=== PATIENT | female | born 1975 | race Two or more races ===

== ENCOUNTER 2019-02-05 10:45 | Emergency (ER) | payer OTHER ==
[~2019-02-05] VITALS: Ht 167.6 cm; Wt 88.5 kg
--- NOTE | 2019-02-05 11:07 | NUR ---
ED Nurse Note:urine sent to labs
--- NOTE | 2019-02-05 11:25 | NUR ---
ER DISCHARGE NOTE: Patient is cleared to be discharged per ERMD, pt is aox4, on room air, with stable vital signs. pt was given dc instructions, pt was able to verbalize understanding, pt is able to ambulate with steady gait. pt took all belongings.
--- NOTE | 2019-02-05 12:51 | Emergency Room Report ---
History of Present Illness General Chief Complaint: General Complaint Source: Patient Present Illness HPI Patient presents emergency department today complaining of breast lump on the right breast. Patient is noted the breast lump on her prior exam herself. She noted about a day ago. She has an appointment to see her primary care physician on Tuesday. She had a recent mammogram 2 years ago. She denies any discharge or injury. Denies any fever nausea vomiting diarrhea chills. No other complaints were noted. Denies lumps anywhere else. No other modifying factors. No other associated signs and symptoms. No other complaints were noted. Allergies: Coded Allergies: No Known Allergies (Unverified , 02/05/19) Patient History Past Medical History: none Past Surgical History: none Pertinent Family History: none Social History: Denies: smoking, alcohol use, drug use Now: No Reviewed Nursing Documentation: PMH: Agreed; PSxH: Agreed Nursing Documentation-PMH Past Medical History: No Stated History Review of Systems All Other Systems: negative except mentioned in HPI Physical Exam Vital Signs Date Time Temp Pulse Resp B/P (MAP) Pulse Ox O2 Delivery O2 Flow Rate FiO2 02/05/19 10:50 97.7 61 17 114/74 (87) 99 Room Air Sp02 EP Interpretation: reviewed, normal General Appearance: normal inspection, well appearing, no apparent distress, alert Head: atraumatic Eyes: bilateral eye normal inspection ENT: normal ENT inspection, hearing grossly normal, normal voice Neck: normal inspection, full range of motion, supple, no bony tend Respiratory: normal inspection, lungs clear, normal breath sounds, no respiratory distress, no retraction, no wheezing Cardiovascular #1: regular rate, rhythm, no edema Gastrointestinal: normal inspection, normal bowel sounds, non tender, soft, no guarding, no hernia Genitourinary: no CVA tenderness Musculoskeletal: normal inspection, back normal, normal range of motion Neurologic: normal inspection, alert, responsive, speech normal Psychiatric: normal inspection, judgement/insight normal, mood/affect normal Skin: no rash Lymphatic: other - Lymph node noted on patient's right breast. But no evidence of any abscess or skin changes. Medical Decision Making Diagnostic Impression: Primary Impression: Breast lump ER Course Patient presents emergency department today complaining of right breast pain. Differential considerations include abscess cellulitis just name a few. Patient 's exam is fairly benign. Patient's exam is consistent with a Breslow. I feel that this can be worked up as an outpatient. Recommend outpatient follow-up. Patient voiced understanding understands importance of follow-up including risk of cancer. Patient is advised to follow up with primary doctor in 2-3 days and return the emergency room for any worsening symptoms and as needed. Last Vital Signs Date Time Temp Pulse Resp B/P (MAP) Pulse Ox O2 Delivery O2 Flow Rate FiO2 02/05/19 10:50 97.7 61 17 114/74 (87) 99 Room Air Status: improved Disposition: HOME, SELF-CARE Condition: Stable Referrals: [facility],REFERRING (PCP) Patient Instructions: Breast Tenderness Additional Instructions: please follow up with your doctor for an exam. You might need a mammogram or need to see a breast specialist. Brandyn Kunz MD Feb 05, 2019 12:51
[2019-02-05 13:12] VITALS: BP 114/74
[2019-02-05 13:14] VITALS: BP 114/74
== END 2019-02-05 11:30 | disposition home or self-care (01) ==
LOC: EMR 11:05
DX: N63.10 Unspecified lump in the right breast, unspecified quadrant (principal)
CPT/HCPCS: 99282

== ENCOUNTER 2019-06-04 09:07 | Emergency (ER) | payer OTHER ==
[~2019-06-04] VITALS: Ht 167.6 cm; Wt 81.6 kg
[2019-06-04 09:26] VITALS: BP 103/66
--- NOTE | 2019-06-04 09:26 | NUR ---
ED Nurse Note:pt. came from home with c/o dizziness, a/ox4 ambulatory with steady gait, seen by FAUSTO BOWEN
[2019-06-04] MEDS ORDERED: Meclizine 25mg tab ORAL STA (09:28)
--- NOTE | 2019-06-04 09:47 | NUR ---
ED Nurse Note:blood and urine sent to labs
[2019-06-04 10:01] LABS: APPEARANCE,URINE CLEAR; BASOPHILS % (AUTO) 1.8 % (0.0-2.0); BILIRUBIN, URINE NEGATIVE (NEGATIVE); COLOR,URINE PALE YELLOW; EOSINOPHILS % (AUTO) 2.3 % (0.0-3.0); GLUCOSE, URINE (UA) NEGATIVE (NEGATIVE); HEMOGLOBIN 9.6 G/DL (12.0-16.0); KETONES,URINE NEGATIVE (NEGATIVE); LEUKOCYTE ESTERASE ,URINE NEGATIVE (NEGATIVE); MEAN CORPUSCULAR VOLUME 71 FL (80-99); MONOCYTES % (AUTO) 6.9 % (1.0-10.0); NITRITE,URINE NEGATIVE (NEGATIVE); PH,URINE 5 (4.5-8.0); PLATELET COUNT 362 K/UL (150-450); PROTEIN,URINE NEGATIVE (NEGATIVE); RED BLOOD COUNT 4.38 M/UL (4.20-5.40); RED CELL DISTRIBUTION WIDTH 13.9 % (11.6-14.8); UROBILINOGEN,URINE NORMAL MG/DL (0.0-1.0); WHITE BLOOD COUNT 6.6 K/UL (4.8-10.8)
[2019-06-04 10:10] LABS: INR 0.9 (0.9-1.1)
[2019-06-04 10:11] LABS: ANION GAP 11 mmol/L (5-15); BLOOD UREA NITROGEN 12 mg/dL (7-18); CALCIUM 8.7 MG/DL (8.5-10.1); CARBON DIOXIDE 24 MMOL/L (21-32); CHLORIDE 106 MMOL/L (98-107); CREATININE 0.6 MG/DL (0.55-1.30); POTASSIUM 3.9 MMOL/L (3.5-5.1); SODIUM 140 MMOL/L (136-145)
[2019-06-04 10:24] LABS: ALANINE AMINOTRANSFERASE 21 U/L (12-78); ALBUMIN 3.7 G/DL (3.4-5.0); ALBUMIN/GLOBULIN RATIO 0.9 (1.0-2.7); ALKALINE PHOSPHATASE 84 U/L (46-116); ASPARTATE AMINO TRANSFERASE 11 U/L (15-37); BILIRUBIN,TOTAL 0.8 MG/DL (0.2-1.0)
--- NOTE | 2019-06-04 11:33 | Emergency Room Report ---
History of Present Illness General Chief Complaint: Dizziness Source: Patient Present Illness HPI Patient presents with 2 weeks of the world spinning when she lays down and moves her head to one side. She denies head trauma. She denies fevers or chills. There is no family history of strokes. No family history of aneurysms. Denies nausea or vomiting. The symptoms improve when she straightens her head or sits up. She is taking no medication. She does not believe she is and her last menstruation was normal. No change in bowels. No rashes about the head. No change in her hearing. No neck pain. No blood thinners, oncologic problems, unilateral weakness or numbness. Allergies: Coded Allergies: No Known Allergies (Unverified , 02/05/19) Patient History Past Medical History: see triage record Social History: Denies: smoking, alcohol use, drug use Social History Narrative With daughter Last Menstrual Period: 05/19/2019 Reviewed Nursing Documentation: PMH: Agreed; PSxH: Agreed Nursing Documentation-PMH Past Medical History: No Stated History Review of Systems Constitutional: Reports: see HPI Eye: Reports: see HPI ENT: Reports: see HPI Respiratory: Denies: shortness of breath Cardiovascular: Reports: see HPI Gastrointestinal: Reports: see HPI Genitourinary: Reports: see HPI Musculoskeletal: Reports: see HPI Skin: Reports: see HPI Neurological: Reports: see HPI Endocrine: Denies: increased thirst, increased urine Physical Exam Vital Signs Date Time Temp Pulse Resp B/P (MAP) Pulse Ox O2 Delivery O2 Flow Rate FiO2 06/04/19 09:10 98.2 79 16 103/66 (78) 96 Room Air Sp02 EP Interpretation: reviewed, normal General Appearance: well appearing, no apparent distress, GCS 15 Head: normocephalic Eyes: bilateral eye normal inspection, bilateral eye PERRL, bilateral eye EOMI - Except when laid flat and head is turned to the right side ENT: moist mucus membranes Neck: full range of motion, supple Respiratory: lungs clear, normal breath sounds Cardiovascular #1: regular rate, rhythm Cardiovascular #2: 2+ radial (R) Gastrointestinal: normal inspection, normal bowel sounds, non tender, no mass, non-distended Musculoskeletal: back normal, normal range of motion, gait/station normal Neurologic: alert, motor strength/tone normal, DTRs symmetric, oriented x3, sensory intact, cerebellar normal, speech normal Psychiatric: mood/affect normal Skin: no rash, warm/dry Medical Decision Making Diagnostic Impression: Primary Impression: Benign positional vertigo Qualified Codes: H81.11 - Benign paroxysmal vertigo, right ear ER Course Patient presents with vertigo when she lays down and turns her head. Insult includes benign positional vertigo, labyrinthitis, Mnire's disease, vestibular neuritis amongst others. Lack of nausea concern for possible central etiology however the patient has no risk factors. There are no red flags in history or physical exam. Laboratory evaluation indicated. Treatment with meclizine. Labs with normal CBC, CMP and urinalysis. Sed rate minimally elevated. Dylan maneuver performed Patient improved with treatment. Discussed the need for follow-up and findings. Patient advised to return if symptoms worsen. Patient stable for outpatient observation and treatment. Laboratory Tests Test 06/04/19 09:40 White Blood Count 6.6 K/UL (4.8-10.8) Red Blood Count 4.38 M/UL (4.20-5.40) Hemoglobin 9.6 G/DL (12.0-16.0) L Hematocrit 31.0 % (37.0-47.0) L Mean Corpuscular Volume 71 FL (80-99) L Mean Corpuscular Hemoglobin 22.0 PG (27.0-31.0) L Mean Corpuscular Hemoglobin Concent 31.0 G/DL (32.0-36.0) L Red Cell Distribution Width 13.9 % (11.6-14.8) Platelet Count 362 K/UL (150-450) Mean Platelet Volume 6.4 FL (6.5-10.1) L Neutrophils (%) (Auto) 55.0 % (45.0-75.0) Lymphocytes (%) (Auto) 34.0 % (20.0-45.0) Monocytes (%) (Auto) 6.9 % (1.0-10.0) Eosinophils (%) (Auto) 2.3 % (0.0-3.0) Basophils (%) (Auto) 1.8 % (0.0-2.0) Erythrocyte Sedimentation Rate 28 MM/HR (0-20) H Prothrombin Time 10.0 SEC (9.30-11.50) Prothrombin Time INR 0.9 (0.9-1.1) Activated Partial Thromboplast Time 25 SEC (23-33) Urine Color Pale yellow Urine Appearance Clear Urine pH 5 (4.5-8.0) Urine Specific [employer] 1.020 (1.005-1.035) Urine Protein Negative (NEGATIVE) Urine Glucose (UA) Negative (NEGATIVE) Urine Ketones Negative (NEGATIVE) Urine Blood Negative (NEGATIVE) Urine Nitrite Negative (NEGATIVE) Urine Bilirubin Negative (NEGATIVE) Urine Urobilinogen Normal MG/DL (0.0-1.0) Urine Leukocyte Esterase Negative (NEGATIVE) Urine HCG, Qualitative Negative (NEGATIVE) Sodium Level 140 MMOL/L (136-145) Potassium Level 3.9 MMOL/L (3.5-5.1) Chloride Level 106 MMOL/L (98-107) Carbon Dioxide Level 24 MMOL/L (21-32) Anion Gap 11 mmol/L (5-15) Blood Urea Nitrogen 12 mg/dL (7-18) Creatinine 0.6 MG/DL (0.55-1.30) Estimate Glomerular Filtration Rate > 60 mL/min (>60) Glucose Level 100 MG/DL (74-106) Calcium Level 8.7 MG/DL (8.5-10.1) Total Bilirubin 0.8 MG/DL (0.2-1.0) Aspartate Amino Transferase (AST) 11 U/L (15-37) L Alanine Aminotransferase (ALT) 21 U/L (12-78) Alkaline Phosphatase 84 U/L (46-116) Troponin I 0.000 ng/mL (0.000-0.056) Total Protein 7.6 G/DL (6.4-8.2) Albumin 3.7 G/DL (3.4-5.0) Globulin 3.9 g/dL Albumin/Globulin Ratio 0.9 (1.0-2.7) L Thyroid Stimulating Hormone (TSH) 2.062 uiU/mL (0.358-3.740) Last Vital Signs Date Time Temp Pulse Resp B/P (MAP) Pulse Ox O2 Delivery O2 Flow Rate FiO2 06/04/19 11:41 98.2 75 16 108/68 98 Room Air Status: improved Disposition: HOME, SELF-CARE Condition: Improved Scripts Meclizine Hcl* (MECLIZINE*) 25 Mg Tablet 25 MG ORAL THREE TIMES A DAY, #14 TAB Prov: Quinton Eller MD 06/04/19 Referrals: [facility],REFERRING (PCP) Quinton Eller MD Jun 04, 2019 11:32
[2019-06-04] MEDS ORDERED: MECLIZINE HCL25 MG ORAL (11:34)
[2019-06-04 11:39] VITALS: BP 108/68
[2019-06-04 11:41] VITALS: BP 108/68
--- NOTE | 2019-06-04 11:42 | NUR ---
ER DISCHARGE NOTE: Patient is cleared to be discharged per ERMD, pt is aox4, on room air, with stable vital signs. pt was given dc and prescription instructions, pt was able to verbalize understanding, pt id band and iv site removed without complications. pt is able to ambulate with steady gait. pt took all belongings.
== END 2019-06-04 11:40 | disposition home or self-care (01) ==
LOC: EMR 09:40
DX: H81.11 Benign paroxysmal vertigo, right ear (principal)
CPT/HCPCS: 36415; 80053; 81003; 81025; 84443; 84484; 85025; 85610; 85651; 85730; Z7502; 99283